=== PATIENT | female | born 1995 | race Caucasian/White ===

== ENCOUNTER 2017-03-08 11:38 | Emergency (ER) | payer OTHER ==
[2017-03-08 11:59] VITALS: BP 125/80; PULSE 67; RESP 18; TEMP 98.4; O2SAT 97
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
== END 2017-03-08 12:08 | disposition home or self-care (01) ==
LOC: CED 11:38
DX: S39.012A Strain of muscle, fascia and tendon of lower back, initial encounter (principal); S50.12XA Contusion of left forearm, initial encounter; S50.11XA Contusion of right forearm, initial encounter; Y04.1XXA Assault by human bite, initial encounter; Y92.89 Other specified places as the place of occurrence of the external cause; Y99.0 Civilian activity done for income or pay; Y93.89 Activity, other specified